=== PATIENT | female | born 1975 | race Caucasian/White ===

== ENCOUNTER 2024-08-26 12:09 | Emergency (ER) | payer MEDICAID ==
[~2024-08-26] VITALS: Ht 170.2 cm; Wt 160.0 kg
[2024-08-26 12:12] VITALS: TEMP 37; O2SAT 97
[2024-08-26 13:38] VITALS: BP 197/103; RESP 18
[2024-08-26] MEDS: OXYCODONE HCL/ACETAMINOPHEN 5/325MG TABLET PO NR (13:38)
[2024-08-26] MEDS: FUROSEMIDE 40MG TABLET PO NR (13:38)
[2024-08-26 13:53] VITALS: PULSE 82
[2024-08-26] MEDS: CARVEDILOL 3.125 MG TABLET PO NR (13:53)
== END 2024-08-26 15:04 | disposition home or self-care (01) ==
LOC: ER 12:09
DX: K08.89 Other specified disorders of teeth and supporting structures (principal); I11.0 Hypertensive heart disease with heart failure; I50.9 Heart failure, unspecified; E11.9 Type 2 diabetes mellitus without complications; J44.89 Other specified chronic obstructive pulmonary disease
CPT/HCPCS: 99284